=== PATIENT | female | born 1935 | race Caucasian/White ===

== ENCOUNTER 2020-03-25 22:12 | Outpatient (REF) | payer MEDICARE, MEDICAID, SELFPAY ==
[2020-03-25 22:29] LABS: BUN 15 mg/dL (7-18); CREATININE 0.9 mg/dL (0.55-1.02); Calcium 8.9 mg/dL (8.5-10.1); Chloride 106 mmol/L (98-107); Glucose 85 mg/dL (74-106); Potassium 4.4 mmol/L (3.5-5.1); Sodium 143 mmol/L (136-145)
== END 2020-03-25 22:13 | disposition home or self-care (01) ==
LOC: NCHCN 22:12
PROVIDERS: PCP Family Medicine; Visit Provider Family Medicine
DX: I10 Essential (primary) hypertension (principal); E11.9 Type 2 diabetes mellitus without complications; E78.5 Hyperlipidemia, unspecified; I25.10 Atherosclerotic heart disease of native coronary artery without angina pectoris; J44.9 Chronic obstructive pulmonary disease, unspecified
CPT/HCPCS: 80048

== ENCOUNTER 2020-10-01 15:17 | Outpatient (REF) | payer MEDICARE, MEDICAID, SELFPAY ==
[2020-09-30 21:52] LABS: COMMENT (LAB VIEW ONLY) 101.41 mg/dL; Microalb ug/mg Crea 46.1 ug/mg Cr
== END 2020-10-01 15:18 | disposition home or self-care (01) ==
LOC: NCHCN 15:17
PROVIDERS: PCP Family Medicine; Visit Provider Family Medicine
DX: E11.9 Type 2 diabetes mellitus without complications (principal); Z00.00 Encounter for general adult medical examination without abnormal findings
CPT/HCPCS: 82043; 82570

== ENCOUNTER 2021-03-31 16:30 | Outpatient (REF) | payer MEDICARE, MEDICAID, SELFPAY ==
[2021-03-31 21:12] LABS: Abs Immature Grans 0.01 10^3/uL (0.0-0.06); Absolute Basophil Count 0.03 10^3/uL (0.0-0.2); Absolute Eosinophil Count 0.11 10^3/uL (0.0-0.7); Absolute Lymphocyte Count 1.18 10^3/uL (1.2-3.4); Absolute Monocyte Count 0.55 10^3/uL (0.1-0.8); Absolute Neutrophil Count 4.18 10^3/uL (1.2-6.7); Basophils % 0.5; Eosinophils % 1.8; HCT 42.7 % (36.0-46.0); HGB 12.5 g/dL (11.2-15.7); Immature Grans % 0.2; Lymphocytes % 19.5; MCH 25.1 pg (27.0-33.0); MCHC 29.3 % (32.0-36.0); MCV 85.6 fL (80-95); MPV 10.9 fL (8.0-11.0); Monocytes % 9.1; Neutrophils % 68.9; Nucleated RBC 0 %; Platelet Count 272 10^3/uL (130-400); RBC 4.99 10^6/uL (3.93-5.22); RDW 15.6 % (11.7-14.6); RDW-SD 48.6 fL; WBC 6.06 10^3/uL (4.4-10.8)
[2021-03-31 21:20] LABS: C-Reactive Protein 0.34 mg/dL (0.0-0.3)
[2021-03-31 21:22] LABS: ESR 8 mm/hr (0-30)
== END 2021-03-31 16:31 | disposition home or self-care (01) ==
LOC: NCHCN 16:30
PROVIDERS: PCP Family Medicine; Visit Provider Family Medicine
DX: I50.32 Chronic diastolic (congestive) heart failure (principal); I10 Essential (primary) hypertension; I25.10 Atherosclerotic heart disease of native coronary artery without angina pectoris; M62.81 Muscle weakness (generalized); F03.90 Unspecified dementia, unspecified severity, without behavioral disturbance, psychotic disturbance, mood disturbance, and anxiety
CPT/HCPCS: 85652; 85025; 86140